=== PATIENT | male | born 1990 | race Caucasian/White ===

== ENCOUNTER → 2024-08-27 | Outpatient (CLI) | payer BC ==
[2024-08-27 16:24] LABS: Basophils # (A) 0.05 10*3/uL (0.00-0.10); Basophils % (A) 0.5 %; Eosinophils # (A) 0.08 10*3/uL (0.04-0.35); Eosinophils % (A) 0.9 %; HCT 48.3 % (39.6-50.0); HGB 16.7 g/dL (13.0-17.0); Lymphocytes # (A) 2.35 10*3/uL (0.90-5.00); Lymphocytes % (A) 25.6 %; MCH 30.9 pg (27.0-32.0); MCHC 34.6 g/dL (32.0-37.0); MCV 89.3 fL (80.0-97.0); Mean Platelet Volume 9.8 fL (9.5-12.2); Monocytes # (A) 0.57 10*3/uL (0.20-1.00); Monocytes % (A) 6.2 %; Neutrophils # (A) 6.07 10*3/uL (1.80-7.70); Neutrophils % (A) 66.1 %; Platelet Count 249 10*3/uL (140-440); RBC 5.41 10*6/uL (4.40-5.60); WBC 9.18 10*3/uL (4.50-10.00)
[2024-08-27 21:24] LABS: HIV 2 AB Non-Reactive (Non-Reactive); HIV AB P24 Non-Reactive (Non-Reactive); HIV P24 AG Non-Reactive (Non-Reactive)
[2024-08-27 21:30] LABS: ALT 93 U/L (10-49); AST 59 U/L (14-35); Albumin 4.5 g/dL (3.8-4.9); Albumin/Globulin Ratio 1.36 Ratio (1.60-3.17); Alkaline Phosphatase 88 U/L (41-126); Blood Urea Nitrogen 19.6 mg/dL (9.0-27.0); Calcium 9.5 mg/dL (8.7-10.3); Carbon Dioxide 18.1 mmol/L (21.6-31.8); Chloride 104 mmol/L (96-109); Globulin 3.3 g/dL (1.6-3.3); Glucose 97 mg/dL (70-110); Potassium 4.8 mmol/L (3.5-5.5); Sodium 138 mmol/L (135-145); Total Bilirubin 0.4 mg/dL (0.3-1.2); Total Protein 7.8 g/dL (6.2-8.2)
== END | disposition home or self-care (01) ==
LOC: LABWHC1 15:33
PROVIDERS: ATTEND Internal Medicine Infectious Disease
DX: B18.2 Chronic viral hepatitis C (principal)
CPT/HCPCS: 36415; 80053; 82105; 85025; 87390; 87522